=== PATIENT | female | born 1980 | race Caucasian/White ===

== ENCOUNTER 2024-09-09 11:02 | Inpatient (IN) | payer MEDICARE, MEDICAID, SELFPAY ==
[2024-09-09 11:26] VITALS: BP 133/74; PULSE 83; RESP 16; TEMP 36.4; O2SAT 98
[2024-09-09 11:34] VITALS: BMI 27.0
--- NOTE | 2024-09-09 12:02 | P.HPPS_ITS ---
[facility] Date of Service: 09/09/24 Chief Complaint: schizoafective disorder, bipolar type Sources of Information: patient interviewed, chart reviewed and crisis/core team assessment reviewed HPI Subjective Notes: Pagan Warning and Section 12B Narrative: The patient is a 44-year-old female, single, with no children, unemployed on disability, living with his mother with good social support with a past history of schizoaffective disorder bipolar type who was referred to a local crisis due to exacerbation of psychosis. According to the crisis report, her mother called the crisis center since the patient had been decompensating slowly with inability to do her ADLs, neglecting her self-care and responding to internal stimuli. The patient is was assessed by the crisis team and referred to this facility for psychiatric stabilization. As per the crisis team's report, the patient is a very poor historian and most of the information was provided by her mother Almita. The crisis assessment reported that her mother has notice involuntary movements in her neck and legs and the mother is the person who provides the patient with her medications. It is unclear if the patient had been compliant with treatment. The patient follows outpatient services by Dr. Sher at [facility]. On the intake interview, the patient refused to sign a conditional voluntary she stated that she was doing fine but she was very poor historian, refused to elaborate. She was unable to provide any new symptoms. Even though, it was clear that the patient was anxious, responding to internal stimuli. She denied auditory hallucinations but she was internally preoccupied. She denies suicidal or homicidal thoughts. She agreed that we could contact her mother for further information. Past Psychiatric History: The patient has 3 prior admissions into the hospital 1 2022 at the [facility] at [facility]. She follows outpatient services by Dr. Sher at [facility] Medical Evaluation Reviewed: Hospitalist Val Pending [facility] Narrative: Denies medical problems Family History: Denies Social History: The patient is single, never , no biological children. She lives with her mother who is a good support and her primary caregiver. Substance History: Denies Trauma History: Denies Diagnostics Vital Signs (24Hr): Vital Signs - 24 hr 09/09/24 11:26 Temperature 97.6 F Pulse Rate 83 Respiratory Rate 16 Blood Pressure 133/74 Pulse Oximetry 98 Oxygen Delivery Method Room Air BMI result Body Mass Index 27.0 Meds/Allergies Meds Home Medications ?Medication ?Instructions ?Recorded ?Confirmed ?Type benztropine 2 mg tablet 2 mg PO BEDTIME 09/09/24 09/09/24 History divalproex 500 mg tablet,extended 500 mg PO BEDTIME 09/09/24 09/09/24 History release 24 hr (Depakote ER) methylphenidate HCl 5 mg tablet 10 mg PO DAILY 09/09/24 09/09/24 History ziprasidone HCl 80 mg capsule 80 mg PO BID@0900,1700 09/09/24 09/09/24 History (Geodon) Allergies Allergies Allergy/AdvReac Type Severity Reaction Status Date / Time No Known Allergies Allergy Verified 09/09/24 11:30 Mental Status Exam Mental Status Exam Patient Appearance: Appropriate (On hospital gowns) Patient Orientation: Person and Situation Level of Consciousness: Awake and Appropriate Patient Behavior: Guarded, Passive and Suspicious Mood Description: Withdrawn Affect Description: Blunted Ability to Follow Directions: Fair Speech Pattern: Impoverished and Monotone Hallucinations: None Delusions: Paranoid Ideation and Ideas of Reference Thought Process: Evasive and Slowed Thinking Thought Content: positive for [place], positive for Poverty of Content and positive for Thought Blocking Judgement: Poor Assessment & Plan Assessment & Plan (1) Schizoaffective disorder: Status: Acute Code(s): F25.9 - Schizoaffective disorder, unspecified Plan The patient is an adult female with a past history of schizoaffective disorder who has prior admissions into the hospital for psychotic decompensation. The present episode started a few weeks ago with self neglect according to his mother. She was assessed by crisis and transferring to this facility for psychiatric stabilization. The patient follows outpatient services at [facility] with by Dr. Sher. Plan 1. The patient is able to contract for safety in the facility so we are going to keep her on 15 minute checks. 2. The patient is a very poor historian, we are going to try to contact her mother and gather collateral information. The patient gave us permission to contact her mother. 3. Continue with antipsychotics as per med reconciliation form. 4. For tomorrow we are ordering comprehensive metabolic panel, CBC with d ifferential, Depakote level and lipid profile. 5. Regular diet 6. Reassessment with results. 7. Hospitalist consult. Patient educated on: diagnosis and therapeutic strategies Informed Consent: further education needed Reason for continued inpatient stay Substantial Risk for: harm to self, inability to function, rapid decompensation and med/psych decompensation Statement Statement: I have reviewed the history and physical and performed a pertinent examination on my patient. No changes have occurred unless specified. If the History and Physical was not performed prior to admission, the Hospitalist's service will be consulted for completing the admission physical. Time Spent With Patient Time: Total time managing care of this patient today __45__ minutes.
--- NOTE | 2024-09-09 13:56 | PC.ADMIT ---
Valarie was admitted to from [facility] ED on 09/09/24 at 11:19 for the treatment of schizoaffective disorder, bipolar type. She declined CV upon arrival and was placed on a 12B. Contraband/skin check was completed upon arrival. The precipitant of admission was concern for decompensation d/t an increase in self dialoguing, not attending to ADL's, and making strange movements. She denies suicidal and homicidal thoughts and intent. She denies auditory and visual hallucinations. She was cooperative with admission process but guarded and difficult to engage. Her eye contact was poor. Utox was negative BAL -. She was placed on 15 minute checks for safety.
--- NOTE | 2024-09-09 14:52 | PC.ADMIT ---
Valarie was admitted to M3 from [facility] for the treatment of schizoaffective disorder, bipolar type. She declined CV and was placed on a 12B. Skin/contraband check was completed by staff. Prior to admission, there had been concerns that Valarie was decompensating due to responding to internal stimuli, not attending to ADL's, and making strange jerking movements. She denies suicidal and homicidal thoughts and intent. She denies auditory and visual hallucinations. She was guarded and made poor eye contact but was overall cooperative. Utox and BAL were negative. She appears somewhat disheveled and her hair was unwashed and unbrushed. She declined to sign all paperwork and consents. She was placed on 15 minute checks for safety.
--- NOTE | 2024-09-09 15:47 | P.CONHOSP_ITS ---
History of Present Illness Data of Consult Service Date: 09/09/24 Primary Care Provider: None Physician HPI Reason for consult: Admission H&P Pt is a 44-year-old female with a PMH significant for schizophrenia?who is admitted to M3 psychiatry unit for concerns about acute psychosis. Pt initially brought to the ED on a section 12 as patient's mother has been worried pt was decompensating and responding to internal stimuli. Pt apparently had not been engaging in her ADLs and had increased pacing, was socially withdrawn, and speaking to herself. Medical consult for admission H&P. Pt seen evaluated on the unit where she appears nervous and occasionally responding to internal stimuli, though overall cooperative. Denies any significant PMH and reports last saw her PCP a few months ago. Denies any acute medical complaints. No fever, chills, nausea, vomiting, abdominal pain. Denies shortness or breath or difficulty breathing. No cough. Denies chest pain/pressure, palpitations. No headache or acute vision changes. Labs from chart reviewed, grossly unremarkable. Vital signs stable and WNL. Review of Systems Review of Systems: Pt has no acute medical complaints at this time. [facility] Social History Household Members: Family Household Members Other:: mom Housing: House Do you presently have visiting nurse or other home services: No Patient Tobacco Use Status: Current everyday Tobacco user Tobacco use type: Cigarette Cigarettes Per Day: 10 Smoked in Last 30 Days: Yes e-Cigarette/Vaping Use: Former Use Patient Interested in Nicotine Replacement: No Patient Given Instructions on How to Stop Smoking: Yes Date Education Initiated: 09/09/24 Second Hand Smoke Exposure: Yes Use of substances other than those prescribed or required for medical reasons: No Currently Displaying Signs/Symptoms of Drug Intoxication Withdrawal: No Any prior treatment program specific to substance use: No Have you been hit, kicked, punched, or otherwise hurt by someone within the past year? If so, by whom?: No Do you feel safe in your current relationship?: No Current Relationship Is there a partner from a previous relationship who is making you feel unsafe now?: No Are you made to feel afraid or neglected: No Advance Directives: No Advance Directives Information Provided: Yes Do you have a plan to hurt others: No Plan Recently lost weight without trying: Unsure Eating poorly because of decreased appetite: No Nutrition Risks: No Nutritional Risk Patient : No : No Poor oral hygiene: No Meds Allergies Allergy/AdvReac Type Severity Reaction Status Date / Time No Known Allergies Allergy Verified 09/09/24 11:30 Active Medications: Current Medications Acetaminophen (Acetaminophen 325 Mg Tablet) 650 mg PO Q6H PRN PRN Reason: Headache/Pain, Scale 1-10 Al Hydroxide/Mg Hydroxide (Magnesium Hydrox/Alum Hydrox 30 Ml Oral.Susp) 30 ml PO Q6H PRN PRN Reason: Heartburn/Nausea Benztropine Mesylate (Benztropine Mesylate 1 Mg Tablet) 2 mg PO BEDTIME FREDI Divalproex Sodium (Divalproex Sodium Er 500 Mg Tab.Er.24h) 500 mg PO BEDTIME FREDI Hydroxyzine HCl (Hydroxyzine Hcl 25 Mg Tablet) 25 mg PO Q6H PRN PRN Reason: mild anxiety Magnesium Hydroxide (Milk Of Magnesia 30 Ml Oral.Susp) 30 ml PO DAILY PRN PRN Reason: Constipation Trazodone HCl (Trazodone Hcl 50 Mg Tablet) 50 mg PO BEDTIME MRX1 PRN PRN Reason: Insomnia Ziprasidone (Ziprasidone 80 Mg Capsule) 80 mg PO BID@0900,1700 [facility] Home Medications ?Medication ?Instructions ?Recorded ?Confirmed ?Last Taken ?Type benztropine 2 mg tablet 2 mg PO BEDTIME 09/09/24 09/09/24 Unknown History divalproex 500 mg tablet,extended 500 mg PO BEDTIME 09/09/24 09/09/24 Unknown History release 24 hr (Depakote ER) methylphenidate HCl 5 mg tablet 10 mg PO DAILY 09/09/24 09/09/24 Unknown History ziprasidone HCl 80 mg capsule 80 mg PO BID@0900,1700 09/09/24 09/09/24 Unknown History (Geodon) Physical Exam Vital Signs and Narrative: Vital Signs: Last Vital Signs Temp 97.6 F 09/09/24 11:26 Pulse 83 09/09/24 11:26 Resp 16 09/09/24 11:26 BP 133/74 09/09/24 11:26 Pulse Ox 98 09/09/24 11:26 O2 Del Method Room Air 09/09/24 11:26 BMI result Body Mass Index 27.0 General: AOx3, no acute distress Resp: CTA bilaterally CVS: S1, S2, RRR GI: +BS, NT, no distention Skin: Warm, dry Neuro: Cranial nerves II-XII grossly intact bilaterally. Motor grossly intact bilaterally Extremities: No edema Psych: Appears nervous, picking at fingers, seems to be responding to internal stimuli. Assessment and Plan (1) Medical clearance for psychiatric admission: Status: Acute Plan Pt is a 44-year-old female with a PMH significant for schizophrenia?who is admitted to M3 psychiatry unit for concerns about acute psychosis. Pt initially brought to the ED on a section 12 as patient's mother has been worried pt was decompensating and responding to internal stimuli. Pt apparently had not been engaging in her ADLs and had increased pacing, was socially withdrawn, and speaking to herself. Medical consult for admission H&P. Mood disorder Plan as per psychiatry Pt otherwise has no known significant chronic medical conditions or acute medical complaints at this time. Will sign off for now. Thank you for allowing us to participate in the care of this pt. Please re-consult if any acute issue or need arises.
[2024-09-09] MEDS: Ziprasidone 80 MG CAPSULE PO (18:05)
[2024-09-09 20:00] VITALS: BP 147/87; PULSE 82; RESP 16; TEMP 36.4; O2SAT 96
[2024-09-09] MEDS: Divalproex Sodium ER 500 MG TAB.ER.24H PO (20:34)
[2024-09-09] MEDS: Benztropine Mesylate 1 MG TABLET 2 MG PO (20:34)
[2024-09-09 21:30] LABS: Valproate 26.5 mcg/mL (50.0-100.0)
[2024-09-09 21:31] LABS: Alanine Aminotransferase 17 U/L (0-31); Albumin Level 4.1 g/dL (3.5-5.0); Alkaline Phosphatase 64 U/L (39-117); Anion Gap 15 (12-20); Aspartate Amino Transferase 24 U/L (5-31); Bilirubin Total 0.3 mg/dL (0.0-1.0); Blood Urea Nitrogen 19 mg/dL (9-16); Carbon Dioxide 21 mmol/L (22-29); Chloride 110 mmol/L (96-108); Creatinine Clr Calc Pharmacy 101.9; Estimated Glomerular Filt Rate > 60; Glucose Random 123 mg/dL (60-115); Potassium 3.9 mmol/L (3.3-5.1); Sodium 142 mmol/L (135-145); Total Protein 7.1 g/dL (6.5-8.0)
[2024-09-10 08:00] VITALS: BP 122/73; PULSE 83; RESP 16; TEMP 36.7; O2SAT 96
[2024-09-10] MEDS: Ziprasidone 80 MG CAPSULE PO ×2 (08:47→17:21)
--- NOTE | 2024-09-10 09:06 | HO.PSYCHPN ---
Subjective Subjective Date of Service: 09/10/24 Reason For Visit: schizoafective disorder, bipolar type Subjective Notes: Section 12B Interim History: The nursing staff reported the patient denies suicidal or homicidal ideation she denies auditory hallucination and she had been guarded but cooperative with poor eye contact. She has refused to sign any papers but she had been medication compliant. On interview the patient looks internally preoccupied refused to engage in a longer conversation. Also, refused her bloodwork initially. Mental Status Exam Mental Status Exam Patient Appearance: Unkempt Patient Orientation: Person and Situation Level of Consciousness: Awake Patient Behavior: Guarded and Passive Mood Description: Withdrawn Affect Description: Blunted Patient Cognition Impaired: Yes Ability to Follow Directions: Fair Speech Pattern: Clear Hallucinations: None Delusions: Paranoid Ideation Thought Process: Distracted and Slowed Thinking Thought Content: positive for [place] and positive for Poverty of Content Judgement: Poor Diagnostics Vital Signs (24Hr): Vital Signs - 24 hr 09/09/24 11:26 09/09/24 20:00 09/10/24 08:00 Temperature 97.6 F 97.5 F 98.1 F Pulse Rate 83 82 83 Respiratory Rate 16 16 16 Blood Pressure 133/74 147/87 H 122/73 Pulse Oximetry 98 96 96 Oxygen Delivery Method Room Air Room Air Room Air BMI result Body Mass Index 27.0 Labs 09/09/24 20:52 Labs: Laboratory Results - last 48 hr 09/09/24 20:52 Sodium 142 Potassium 3.9 Chloride 110 H Carbon Dioxide 21 L Anion Gap 15 BUN 19 H Creatinine 0.74 Estim Creat Clear Calc 101.9 Estimated GFR > 60 Random Glucose 123 H Calcium 9.0 Total Bilirubin 0.3 AST 24 ALT 17 Alkaline Phosphatase 64 Total Protein 7.1 Albumin 4.1 Valproic Acid 26.5 L Medications Medications Current Medications Acetaminophen (Acetaminophen 325 Mg Tablet) 650 mg PO Q6H PRN PRN Reason: Headache/Pain, Scale 1-10 Al Hydroxide/Mg Hydroxide (Magnesium Hydrox/Alum Hydrox 30 Ml Oral.Susp) 30 ml PO Q6H PRN PRN Reason: Heartburn/Nausea Benztropine Mesylate (Benztropine Mesylate 1 Mg Tablet) 2 mg PO BEDTIME FREDI Last Admin: 09/09/24 20:34 Dose: 2 mg Divalproex Sodium (Divalproex Sodium Er 500 Mg Tab.Er.24h) 500 mg PO BEDTIME FREDI Last Admin: 09/09/24 20:34 Dose: 500 mg Hydroxyzine HCl (Hydroxyzine Hcl 25 Mg Tablet) 25 mg PO Q6H PRN PRN Reason: mild anxiety Magnesium Hydroxide (Milk Of Magnesia 30 Ml Oral.Susp) 30 ml PO DAILY PRN PRN Reason: Constipation Trazodone HCl (Trazodone Hcl 50 Mg Tablet) 50 mg PO BEDTIME MRX1 PRN PRN Reason: Insomnia Ziprasidone (Ziprasidone 80 Mg Capsule) 80 mg PO BID@0900,1700 [facility] Last Admin: 09/10/24 08:47 Dose: 80 mg Allergies Allergies Allergy/AdvReac Type Severity Reaction Status Date / Time No Known Allergies Allergy Verified 09/09/24 11:30 Assessment & Plan Assessment & Plan (1) Medical clearance for psychiatric admission: Status: Acute Code(s): Z00.8 - Encounter for other general examination Plan Pt is a 44-year-old female with a PMH significant for schizophrenia?who is admitted to M3 psychiatry unit for concerns about acute psychosis. Pt initially brought to the ED on a section 12 as patient's mother has been worried pt was decompensating and responding to internal stimuli. Pt apparently had not been engaging in her ADLs and had increased pacing, was socially withdrawn, and speaking to herself. Medical consult for admission H&P. Mood disorder Plan as per psychiatry Pt otherwise has no known significant chronic medical conditions or acute medical complaints at this time. Will sign off for now. Thank you for allowing us to participate in the care of this pt. Please re-consult if any acute issue or need arises. Plan 1. Keep on 15 minute checks. 2. Gather more collateral information the patient is a very poor historian. 3. Continue with the same psychotropics. 4. Continue with medical workout and reassessment with results. Reason for continued inpatient stay Substantial Risk for: inability to function, rapid decompensation and med/psych decompensation Time Spent With Patient Time: Total time managing care of this patient today __20__ minutes.
[2024-09-10] MEDS: Benztropine Mesylate 1 MG TABLET 2 MG PO (20:47)
[2024-09-10] MEDS: Divalproex Sodium ER 500 MG TAB.ER.24H PO (20:48)
[2024-09-11 07:40] VITALS: BP 112/65; PULSE 67; RESP 14; TEMP 36.7; O2SAT 98
[2024-09-11] MEDS: Ziprasidone 80 MG CAPSULE PO ×2 (09:00→17:27)
[2024-09-11 09:09] LABS: Cholesterol 150 mg/dL (<200); HDL Cholesterol 63 mg/dL (>40); LDL Cholesterol Calculated 79 mg/dL (<100); Triglycerides 41 mg/dL (<150)
[2024-09-11 09:37] LABS: Free T4 (Free Thyroxine) 1.13 ng/dL (0.71-1.85)
--- NOTE | 2024-09-11 15:08 | HO.PSYCHPN ---
Subjective Subjective Date of Service: 09/11/24 Reason For Visit: schizoafective disorder, bipolar type Interim History: mood is good, denies SI/HI/AVH. distracted, may be RIS. per staff, not attending groups. no consent for mother. +dep/anx. isolative. slept 7 hours. taking meds. Mental Status Exam Mental Status Exam Narrative: adequately dressed and groomed. cooperative. no PMA/PMR. speech nml rate, decr amount, decr prosody. some GARY indicative of distraction (ie, AH). thoughts linear and logical. affect blunted. mood it's good. denies SI/SIBI/HI/AVH. Diagnostics Vital Signs (24Hr): Vital Signs - 24 hr 09/11/24 07:40 Temperature 98.0 F Pulse Rate 67 Respiratory Rate 14 Blood Pressure 112/65 Pulse Oximetry 98 Oxygen Delivery Method Room Air BMI result Body Mass Index 27.0 Labs 09/09/24 20:52 Labs: Laboratory Results - last 48 hr 09/09/24 09/11/24 20:52 08:08 Sodium 142 Potassium 3.9 Chloride 110 H Carbon Dioxide 21 L Anion Gap 15 BUN 19 H Creatinine 0.74 Estim Creat Clear Calc 101.9 Estimated GFR > 60 Random Glucose 123 H Calcium 9.0 Total Bilirubin 0.3 AST 24 ALT 17 Alkaline Phosphatase 64 Total Protein 7.1 Albumin 4.1 Triglycerides 41 Cholesterol 150 LDL Cholesterol, Calc 79 HDL Cholesterol 63 Free T4 1.13 Valproic Acid 26.5 L Medications Medications Current Medications Acetaminophen (Acetaminophen 325 Mg Tablet) 650 mg PO Q6H PRN PRN Reason: Headache/Pain, Scale 1-10 Al Hydroxide/Mg Hydroxide (Magnesium Hydrox/Alum Hydrox 30 Ml Oral.Susp) 30 ml PO Q6H PRN PRN Reason: Heartburn/Nausea Benztropine Mesylate (Benztropine Mesylate 1 Mg Tablet) 2 mg PO BEDTIME FREDI Last Admin: 09/10/24 20:47 Dose: 2 mg Divalproex Sodium (Divalproex Sodium Er 500 Mg Tab.Er.24h) 500 mg PO BEDTIME FREDI Last Admin: 09/10/24 20:48 Dose: 500 mg Hydroxyzine HCl (Hydroxyzine Hcl 25 Mg Tablet) 25 mg PO Q6H PRN PRN Reason: mild anxiety Magnesium Hydroxide (Milk Of Magnesia 30 Ml Oral.Susp) 30 ml PO DAILY PRN PRN Reason: Constipation Trazodone HCl (Trazodone Hcl 50 Mg Tablet) 50 mg PO BEDTIME MRX1 PRN PRN Reason: Insomnia Ziprasidone (Ziprasidone 80 Mg Capsule) 80 mg PO BID@0900,1700 FREDI Last Admin: 09/11/24 09:00 Dose: 80 mg Allergies Allergies Allergy/AdvReac Type Severity Reaction Status Date / Time No Known Allergies Allergy Verified 09/09/24 11:30 Assessment & Plan Assessment & Plan (1) Medical clearance for psychiatric admission: Status: Acute Code(s): Z00.8 - Encounter for other general examination Plan Pt is a 44-year-old female with a PMH significant for schizophrenia?who is admitted to M3 psychiatry unit for concerns about acute psychosis. Pt initially brought to the ED on a section 12 as patient's mother has been worried pt was decompensating and responding to internal stimuli. Pt apparently had not been engaging in her ADLs and had increased pacing, was socially withdrawn, and speaking to herself. Medical consult for admission H&P. Mood disorder Plan as per psychiatry Pt otherwise has no known significant chronic medical conditions or acute medical complaints at this time. Will sign off for now. Thank you for allowing us to participate in the care of this pt. Please re-consult if any acute issue or need arises. Plan 1. Keep on 15 minute checks. 2. Gather more collateral information the patient is a very poor historian. 3. Continue with the same psychotropics. 4. Continue with medical workout and reassessment with results. 3/3: meds reviewed, pt endorses present regimen. denies Sx. continue current mgmt. Reason for continued inpatient stay Substantial Risk for: inability to function and rapid decompensation Time Spent With Patient Time: Total time managing care of this patient today __25__ minutes.
[2024-09-11 20:00] VITALS: BP 125/62; PULSE 76; RESP 16; TEMP 36.3; O2SAT 99
[2024-09-11] MEDS: Benztropine Mesylate 1 MG TABLET 2 MG PO (21:30)
[2024-09-11] MEDS: Divalproex Sodium ER 500 MG TAB.ER.24H PO (21:31)
[2024-09-12 07:46] VITALS: BP 116/76; PULSE 96; RESP 18; TEMP 36.8; O2SAT 99
[2024-09-12] MEDS: Ziprasidone 80 MG CAPSULE PO ×2 (08:32→17:01)
[2024-09-12 20:45] VITALS: BP 131/86; PULSE 62; RESP 16; TEMP 36.3; O2SAT 100
[2024-09-12] MEDS: Benztropine Mesylate 1 MG TABLET 2 MG PO (21:35)
[2024-09-12] MEDS: Divalproex Sodium ER 500 MG TAB.ER.24H PO (21:36)
--- NOTE | 2024-09-12 23:13 | HO.PSYCHPN ---
Subjective Subjective Date of Service: 09/12/24 Reason For Visit: schizoafective disorder, bipolar type Subjective Notes: Conditional Voluntary Interim History: Patient seen psychiatric coverage for Dr. Goodwin. Patient has generally been isolative cooperative with medication no severe agitation noted no medical changes Mental Status Exam Mental Status Exam Narrative: Patient casually dressed somewhat disheveled. Poverty of content denied hallucinations or delusional material denies hallucinations no gross delusional material impulse control adequate accepting treatment Diagnostics Vital Signs (24Hr): Vital Signs - 24 hr 09/12/24 07:46 09/12/24 20:45 Temperature 98.2 F 97.3 F Pulse Rate 96 62 Respiratory Rate 18 16 Blood Pressure 116/76 131/86 Pulse Oximetry 99 100 Oxygen Delivery Method Room Air Room Air BMI result Body Mass Index 27.0 Labs 09/09/24 20:52 Labs: Laboratory Results - last 48 hr 09/11/24 08:08 Triglycerides 41 Cholesterol 150 LDL Cholesterol, Calc 79 HDL Cholesterol 63 Free T4 1.13 Medications Medications Current Medications Acetaminophen (Acetaminophen 325 Mg Tablet) 650 mg PO Q6H PRN PRN Reason: Headache/Pain, Scale 1-10 Al Hydroxide/Mg Hydroxide (Magnesium Hydrox/Alum Hydrox 30 Ml Oral.Susp) 30 ml PO Q6H PRN PRN Reason: Heartburn/Nausea Benztropine Mesylate (Benztropine Mesylate 1 Mg Tablet) 2 mg PO BEDTIME [facility] Last Admin: 09/12/24 21:35 Dose: 2 mg Divalproex Sodium (Divalproex Sodium Er 500 Mg Tab.Er.24h) 500 mg PO BEDTIME [facility] Last Admin: 09/12/24 21:36 Dose: 500 mg Hydroxyzine HCl (Hydroxyzine Hcl 25 Mg Tablet) 25 mg PO Q6H PRN PRN Reason: mild anxiety Magnesium Hydroxide (Milk Of Magnesia 30 Ml Oral.Susp) 30 ml PO DAILY PRN PRN Reason: Constipation Trazodone HCl (Trazodone Hcl 50 Mg Tablet) 50 mg PO BEDTIME MRX1 PRN PRN Reason: Insomnia Ziprasidone (Ziprasidone 80 Mg Capsule) 80 mg PO BID@0900,1700 [facility] Last Admin: 09/12/24 17:01 Dose: 80 mg Allergies Allergies Allergy/AdvReac Type Severity Reaction Status Date / Time No Known Allergies Allergy Verified 09/09/24 11:30 Assessment & Plan Assessment & Plan (1) Schizoaffective disorder: Status: Acute Code(s): F25.9 - Schizoaffective disorder, unspecified Plan Pt is a 44-year-old female with a PMH significant for schizophrenia?who is admitted to M3 psychiatry unit for concerns about acute psychosis. Pt initially brought to the ED on a section 12 as patient's mother has been worried pt was decompensating and responding to internal stimuli. Pt apparently had not been engaging in her ADLs and had increased pacing, was socially withdrawn, and speaking to herself. Medical consult for admission H&P. Mood disorder Plan as per psychiatry Pt otherwise has no known significant chronic medical conditions or acute medical complaints at this time. Will sign off for now. Thank you for allowing us to participate in the care of this pt. Please re-consult if any acute issue or need arises. Plan 1. Keep on 15 minute checks. 2. Gather more collateral information the patient is a very poor historian. 3. Continue with the same psychotropics. 4. Continue with medical workout and reassessment with results. 3/3: meds reviewed, pt endorses present regimen. denies Sx. continue current mgmt. Patient educated on: diagnosis Informed Consent: further education needed Reason for continued inpatient stay Substantial Risk for: inability to function and rapid decompensation Time Spent With Patient Time: Total time managing care of this patient today ____ minutes.
[2024-09-13 07:49] VITALS: BP 125/75; PULSE 70; RESP 16; TEMP 36.4; O2SAT 99
[2024-09-13] MEDS: Ziprasidone 80 MG CAPSULE PO ×2 (08:20→17:20)
--- NOTE | 2024-09-13 15:14 | HO.PSYCHPN ---
Subjective Subjective Date of Service: 09/13/24 Reason For Visit: schizoafective disorder, bipolar type Interim History: signs CV and then 3-day notice, feeling perhaps remaining in the hospital for now would be helpful for her. declines lab draw for tomorrow night. per staff, 12b up today. taking meds. lfat. withdrawn. guarded. +RIS - whispering. slept most of shift. Mental Status Exam Mental Status Exam Narrative: adequately dressed and groomed. cooperative. no PMA/PMR. speech nml rate, decr amount, decr prosody. some GARY indicative of distraction (ie, AH). thoughts linear and logical. affect blunted. mood not assessed. no SI/SIBI/HI/AVH expressed. Diagnostics Vital Signs (24Hr): Vital Signs - 24 hr 09/12/24 20:45 09/13/24 07:49 Temperature 97.3 F 97.5 F Pulse Rate 62 70 Respiratory Rate 16 16 Blood Pressure 131/86 125/75 Pulse Oximetry 100 99 Oxygen Delivery Method Room Air Room Air BMI result Body Mass Index 27.0 Labs 09/09/24 20:52 Medications Medications Current Medications Acetaminophen (Acetaminophen 325 Mg Tablet) 650 mg PO Q6H PRN PRN Reason: Headache/Pain, Scale 1-10 Al Hydroxide/Mg Hydroxide (Magnesium Hydrox/Alum Hydrox 30 Ml Oral.Susp) 30 ml PO Q6H PRN PRN Reason: Heartburn/Nausea Benztropine Mesylate (Benztropine Mesylate 1 Mg Tablet) 2 mg PO BEDTIME [facility] Last Admin: 09/12/24 21:35 Dose: 2 mg Divalproex Sodium (Divalproex Sodium Er 500 Mg Tab.Er.24h) 500 mg PO BEDTIME [facility] Last Admin: 09/12/24 21:36 Dose: 500 mg Hydroxyzine HCl (Hydroxyzine Hcl 25 Mg Tablet) 25 mg PO Q6H PRN PRN Reason: mild anxiety Magnesium Hydroxide (Milk Of Magnesia 30 Ml Oral.Susp) 30 ml PO DAILY PRN PRN Reason: Constipation Trazodone HCl (Trazodone Hcl 50 Mg Tablet) 50 mg PO BEDTIME MRX1 PRN PRN Reason: Insomnia Ziprasidone (Ziprasidone 80 Mg Capsule) 80 mg PO BID@0900,1700 [facility] Last Admin: 09/13/24 08:20 Dose: 80 mg Allergies Allergies Allergy/AdvReac Type Severity Reaction Status Date / Time No Known Allergies Allergy Verified 09/09/24 11:30 Assessment & Plan Assessment & Plan (1) Schizoaffective disorder: Status: Acute Code(s): F25.9 - Schizoaffective disorder, unspecified Plan Pt is a 44-year-old female with a PMH significant for schizophrenia?who is admitted to [facility] psychiat[facility] unit for concerns about acute psychosis. Pt initially brought to the ED on a section 12 as patient's mother has been worried pt was decompensating and responding to internal stimuli. Pt apparently had not been engaging in her ADLs and had increased pacing, was socially withdrawn, and speaking to herself. Medical consult for admission H&P. Mood disorder Plan as per psychiatry Pt otherwise has no known significant chronic medical conditions or acute medical complaints at this time. Will sign off for now. Thank you for allowing us to participate in the care of this pt. Please re-consult if any acute issue or need arises. Plan 1. Keep on 15 minute checks. 2. Gather more collateral information the patient is a very poor historian. 3. Continue with the same psychotropics. 4. Continue with medical workout and reassessment with results. 3/3: meds reviewed, pt endorses present regimen. denies Sx. continue current mgmt. 3/5: signed CV, then 3-day. continue current mgmt. declines lab draw for tomorrow. Reason for continued inpatient stay Substantial Risk for: inability to function and rapid decompensation Time Spent With Patient Time: Total time managing care of this patient today __35__ minutes.
[2024-09-13] MEDS: Benztropine Mesylate 1 MG TABLET 2 MG PO (20:27)
[2024-09-13] MEDS: Divalproex Sodium ER 500 MG TAB.ER.24H PO (20:27)
[2024-09-14 07:00] VITALS: BMI 26.9
[2024-09-14 07:42] VITALS: BP 113/68; PULSE 73; RESP 18; TEMP 36.6; O2SAT 97
[2024-09-14] MEDS: Ziprasidone 80 MG CAPSULE PO ×2 (08:21→16:36)
--- NOTE | 2024-09-14 12:01 | P.PNPSI_ITS ---
Subjective Subjective Date of Service: 09/14/24 Reason For Visit: schizoafective disorder, bipolar type Interim History: Keeping to self. isolating to room. guarded. pt brief during assessment. She reports feeling alright today; when asked why she is not leaving her room; pt stated, because I'm not in the mood for groups . denies SI/HI/VH/AH. denies any issues at this time. per nursing, slept 8 hours. Medication Compliance: Yes Side effects from medications: No Attending Groups: No Mental Status Exam Mental Status Exam Narrative: Pt is alert and oriented; behavior is cooperative, calm, guarded, brief; dressed in hospital attire; mood is described as alright ; eye contact appropriate; Speech is normal rate, volume and not pressured;difficult to engage; denies SI/HI/VH/AH. Diagnostics Vital Signs (24Hr): Vital Signs - 24 hr 09/14/24 07:42 Temperature 97.8 F Pulse Rate 73 Respiratory Rate 18 Blood Pressure 113/68 Pulse Oximetry 97 Oxygen Delivery Method Room Air BMI result Body Mass Index 26.9 Labs 09/09/24 20:52 Medications Medications Current Medications Acetaminophen (Acetaminophen 325 Mg Tablet) 650 mg PO Q6H PRN PRN Reason: Headache/Pain, Scale 1-10 Al Hydroxide/Mg Hydroxide (Magnesium Hydrox/Alum Hydrox 30 Ml Oral.Susp) 30 ml PO Q6H PRN PRN Reason: Heartburn/Nausea Benztropine Mesylate (Benztropine Mesylate 1 Mg Tablet) 2 mg PO BEDTIME [facility] Last Admin: 09/13/24 20:27 Dose: 2 mg Divalproex Sodium (Divalproex Sodium Er 500 Mg Tab.Er.24h) 500 mg PO BEDTIME [facility] Last Admin: 09/13/24 20:27 Dose: 500 mg Hydroxyzine HCl (Hydroxyzine Hcl 25 Mg Tablet) 25 mg PO Q6H PRN PRN Reason: mild anxiety Magnesium Hydroxide (Milk Of Magnesia 30 Ml Oral.Susp) 30 ml PO DAILY PRN PRN Reason: Constipation Trazodone HCl (Trazodone Hcl 50 Mg Tablet) 50 mg PO BEDTIME MRX1 PRN PRN Reason: Insomnia Ziprasidone (Ziprasidone 80 Mg Capsule) 80 mg PO BID@0900,1700 [facility] Last Admin: 09/14/24 08:21 Dose: 80 mg Allergies Allergies Allergy/AdvReac Type Severity Reaction Status Date / Time No Known Allergies Allergy Verified 09/09/24 11:30 Assessment & Plan Assessment & Plan (1) Schizoaffective disorder: Status: Acute Code(s): F25.9 - Schizoaffective disorder, unspecified Plan Pt is a 44-year-old female with a PMH significant for schizophrenia?who is admitted to [facility] unit for concerns about acute psychosis. Pt initially brought to the ED on a section 12 as patient's mother has been worried pt was decompensating and responding to internal stimuli. Pt apparently had not been engaging in her ADLs and had increased pacing, was socially withdrawn, and speaking to herself. Medical consult for admission H&P. Mood disorder Plan as per psychiatry Pt otherwise has no known significant chronic medical conditions or acute medical complaints at this time. Will sign off for now. Thank you for allowing us to participate in the care of this pt. Please re-consult if any acute issue or need arises. Plan 1. Keep on 15 minute checks. 2. Gather more collateral information the patient is a very poor historian. 3. Continue with the same psychotropics. 4. Continue with medical workout and reassessment with results. 09/11: meds reviewed, pt endorses present regimen. denies Sx. continue current mgmt. 09/13: signed CV, then 3-day. continue current mgmt. declines lab draw for tomorrow. 09/14: isolative. difficult to engage. denies any issues. per nursing slept 8 hours. continue tx plan. Reason for continued inpatient stay Substantial Risk for: med/psych decompensation Time Spent With Patient Time: Total time managing care of this patient today _10___ minutes.
[2024-09-14 20:11] VITALS: BP 181/72; PULSE 65; RESP 18; TEMP 36.3; O2SAT 100
[2024-09-14] MEDS: Divalproex Sodium ER 500 MG TAB.ER.24H PO (22:05)
[2024-09-14] MEDS: Benztropine Mesylate 1 MG TABLET 2 MG PO (22:05)
[2024-09-15 08:00] VITALS: BP 117/56; PULSE 75; RESP 16; TEMP 36.4; O2SAT 98
[2024-09-15] MEDS: Ziprasidone 80 MG CAPSULE PO ×2 (08:31→17:23)
--- NOTE | 2024-09-15 13:11 | HO.PSYCHPN ---
Subjective Subjective Date of Service: 09/15/24 Reason For Visit: schizoafective disorder, bipolar type Interim History: Continues isolating in room. guarded. encouraged to leave room and attend groups. She reports feeling good ; denies SI/HI/VH/AH. denies any issues at this time. Medication Compliance: Yes Side effects from medications: No Attending Groups: No Mental Status Exam Mental Status Exam Narrative: Pt is alert and oriented; behavior is cooperative, calm, guarded, brief; dressed in hospital attire; mood is described as good ; eye contact appropriate; Speech is normal rate, volume and not pressured;difficult to engage; denies SI/HI/VH/AH. Diagnostics Vital Signs (24Hr): Vital Signs - 24 hr 09/14/24 20:11 09/15/24 08:00 Temperature 97.3 F 97.6 F Pulse Rate 65 75 Respiratory Rate 18 16 Blood Pressure 181/72 H 117/56 L Pulse Oximetry 100 98 Oxygen Delivery Method Room Air Room Air BMI result Body Mass Index 26.9 Labs 09/09/24 20:52 Medications Medications Current Medications Acetaminophen (Acetaminophen 325 Mg Tablet) 650 mg PO Q6H PRN PRN Reason: Headache/Pain, Scale 1-10 Al Hydroxide/Mg Hydroxide (Magnesium Hydrox/Alum Hydrox 30 Ml Oral.Susp) 30 ml PO Q6H PRN PRN Reason: Heartburn/Nausea Benztropine Mesylate (Benztropine Mesylate 1 Mg Tablet) 2 mg PO BEDTIME [facility] Last Admin: 09/14/24 22:05 Dose: 2 mg Divalproex Sodium (Divalproex Sodium Er 500 Mg Tab.Er.24h) 500 mg PO BEDTIME [facility] Last Admin: 09/14/24 22:05 Dose: 500 mg Hydroxyzine HCl (Hydroxyzine Hcl 25 Mg Tablet) 25 mg PO Q6H PRN PRN Reason: mild anxiety Magnesium Hydroxide (Milk Of Magnesia 30 Ml Oral.Susp) 30 ml PO DAILY PRN PRN Reason: Constipation Trazodone HCl (Trazodone Hcl 50 Mg Tablet) 50 mg PO BEDTIME MRX1 PRN PRN Reason: Insomnia Ziprasidone (Ziprasidone 80 Mg Capsule) 80 mg PO BID@0900,1700 [facility] Last Admin: 09/15/24 08:31 Dose: 80 mg Allergies Allergies Allergy/AdvReac Type Severity Reaction Status Date / Time No Known Allergies Allergy Verified 09/09/24 11:30 Assessment & Plan Assessment & Plan (1) Schizoaffective disorder: Status: Acute Code(s): F25.9 - Schizoaffective disorder, unspecified Plan Pt is a 44-year-old female with a PMH significant for schizophrenia?who is admitted to [facility] unit for concerns about acute psychosis. Pt initially brought to the ED on a section 12 as patient's mother has been worried pt was decompensating and responding to internal stimuli. Pt apparently had not been engaging in her ADLs and had increased pacing, was socially withdrawn, and speaking to herself. Medical consult for admission H&P. Mood disorder Plan as per psychiatry Pt otherwise has no known significant chronic medical conditions or acute medical complaints at this time. Will sign off for now. Thank you for allowing us to participate in the care of this pt. Please re-consult if any acute issue or need arises. Plan 1. Keep on 15 minute checks. 2. Gather more collateral information the patient is a very poor historian. 3. Continue with the same psychotropics. 4. Continue with medical workout and reassessment with results. 09/11: meds reviewed, pt endorses present regimen. denies Sx. continue current mgmt. 09/13: signed CV, then 3-day. continue current mgmt. declines lab draw for tomorrow. 09/14: isolative. difficult to engage. denies any issues. per nursing slept 8 hours. continue tx plan. 09/15: continue current tx plan. encouraged to leave room and attend groups. Patient educated on: medication risk/benefits Reason for continued inpatient stay Substantial Risk for: med/psych decompensation Time Spent With Patient Time: Total time managing care of this patient today _10___ minutes.
[2024-09-15 20:00] VITALS: BP 117/87; PULSE 90; RESP 16; TEMP 36.4; O2SAT 98
[2024-09-15] MEDS: Benztropine Mesylate 1 MG TABLET 2 MG PO (22:31)
[2024-09-15] MEDS: Divalproex Sodium ER 500 MG TAB.ER.24H PO (22:32)
[2024-09-16 07:35] VITALS: BP 110/76; PULSE 68; RESP 16; TEMP 36.5; O2SAT 99
[2024-09-16] MEDS: Ziprasidone 80 MG CAPSULE PO ×2 (09:05→17:45)
--- NOTE | 2024-09-16 11:35 | P.PNPSI_ITS ---
Subjective Subjective Date of Service: 09/16/24 Reason For Visit: schizoafective disorder, bipolar type Subjective Notes: Conditional Voluntary Interim History: Pt sleeping. She continues to present as internally preoccupied, although will denied ever hearing voices. She has not insight as to why she is here or why others were concern about her presentation. She presents with poverty of thought. She is somewhat ambivalent as to whether she should be here or not. She has not meaningful opinion as to hx of medication trials or therapeutic effects of current medications. Review of Systems Review of Systems Pt has no acute medical complaints at this time. Yes all other systems are reviewed and are negative Mental Status Exam Mental Status Exam Narrative: Appearance: wearing hospital gown, fair hygiene in NAD Behavior: superficially cooperative, but no meaninful engagement Psychomotor: no agitation or retardation noted Speech: clear, decrease amount, minimally spontaneous TP: poverty of thought TC: hoping to go home soon Mood: okay Affect: constricted SI: denies HI: denies VH/AH: although she denies, appears internally preoccupied Delusions: no overt delusional content reported, may not be fully forthcoming Insight/judgment: impaired x 2 Memory/co: alert, not oriented as to reasons for this admission, vague as to what brought her here, which according to records mother concern about pt's decompensation. Diagnostics Vital Signs (24Hr): Vital Signs - 24 hr 09/15/24 20:00 09/16/24 07:35 Temperature 97.5 F 97.7 F Pulse Rate 90 68 Respiratory Rate 16 16 Blood Pressure 117/87 110/76 Pulse Oximetry 98 99 Oxygen Delivery Method Room Air Room Air BMI result Body Mass Index 26.9 Labs 09/09/24 20:52 Medications Medications Current Medications Acetaminophen (Acetaminophen 325 Mg Tablet) 650 mg PO Q6H PRN PRN Reason: Headache/Pain, Scale 1-10 Al Hydroxide/Mg Hydroxide (Magnesium Hydrox/Alum Hydrox 30 Ml Oral.Susp) 30 ml PO Q6H PRN PRN Reason: Heartburn/Nausea Benztropine Mesylate (Benztropine Mesylate 1 Mg Tablet) 2 mg PO BEDTIME [facility] Last Admin: 09/15/24 22:31 Dose: 2 mg Divalproex Sodium (Divalproex Sodium Er 500 Mg Tab.Er.24h) 500 mg PO BEDTIME [facility] Last Admin: 09/15/24 22:32 Dose: 500 mg Hydroxyzine HCl (Hydroxyzine Hcl 25 Mg Tablet) 25 mg PO Q6H PRN PRN Reason: mild anxiety Magnesium Hydroxide (Milk Of Magnesia 30 Ml Oral.Susp) 30 ml PO DAILY PRN PRN Reason: Constipation Trazodone HCl (Trazodone Hcl 50 Mg Tablet) 50 mg PO BEDTIME MRX1 PRN PRN Reason: Insomnia Ziprasidone (Ziprasidone 80 Mg Capsule) 80 mg PO BID@0900,1700 [facility] Last Admin: 09/16/24 09:05 Dose: 80 mg Allergies Allergies Allergy/AdvReac Type Severity Reaction Status Date / Time No Known Allergies Allergy Verified 09/09/24 11:30 Assessment & Plan Assessment & Plan (1) Schizoaffective disorder: Status: Acute Code(s): F25.9 - Schizoaffective disorder, unspecified Plan Pt is a 44-year-old female with a PMH significant for schizophrenia?who is admitted to [facility] unit for concerns about acute psychosis. Pt initially brought to the ED on a section 12 as patient's mother has been worried pt was decompensating and responding to internal stimuli. Pt apparently had not been engaging in her ADLs and had increased pacing, was socially withdrawn, and speaking to herself. Medical consult for admission H&P. Mood disorder Plan as per psychiatry Pt otherwise has no known significant chronic medical conditions or acute medical complaints at this time. Will sign off for now. Thank you for allowing us to participate in the care of this pt. Please re-consult if any acute issue or need arises. 09/11: meds reviewed, pt endorses present regimen. denies Sx. continue current mgmt. 09/13: signed CV, then 3-day. continue current mgmt. declines lab draw for tomorrow. 09/14: isolative. difficult to engage. denies any issues. per nursing slept 8 hours. continue tx plan. 09/15: continue current tx plan. encouraged to leave room and attend groups. 09/16 consider gathering collateral information from OP psychiatrist, Dr. Sher as pt may benefit from medication changes. She also presents with s/s of akathisia, tapping feet Reason for continued inpatient stay Substantial Risk for: inability to function Time Spent With Patient Time: Total time managing care of this patient today ____ minutes.
[2024-09-16 20:00] VITALS: BP 124/57; PULSE 61; RESP 14; TEMP 36.4; O2SAT 99
[2024-09-16] MEDS: Benztropine Mesylate 1 MG TABLET 2 MG PO (20:37)
[2024-09-16] MEDS: Divalproex Sodium ER 500 MG TAB.ER.24H PO (20:38)
[2024-09-17 08:00] VITALS: BP 130/83; PULSE 76; TEMP 36.4; O2SAT 100
[2024-09-17] MEDS: Ziprasidone 80 MG CAPSULE PO ×2 (09:16→17:34)
--- NOTE | 2024-09-17 11:46 | P.PNPSI_ITS ---
Subjective Subjective Date of Service: 09/17/24 Reason For Visit: schizoafective disorder, bipolar type Subjective Notes: Conditional Voluntary Interim History: Pt slept through the night. She did have a shower last night. Today casually groomed and out of bed but in the room.She has not insight as to why she is here or why others were concern about her presentation. She presents with poverty of thought. She is somewhat ambivalent as to whether she should be here or not. She has not meaningful opinion as to hx of medication trials or therapeutic effects of current medications. Review of Systems Review of Systems Pt has no acute medical complaints at this time. Yes all other systems are reviewed and are negative Mental Status Exam Mental Status Exam Narrative: Appearance: wearing hospital gown, fair hygiene in NAD Behavior: superficially cooperative, but no meaninful engagement Psychomotor: no agitation or retardation noted Speech: clear, decrease amount, minimally spontaneous TP: poverty of thought TC: hoping to go home soon Mood: okay Affect: constricted SI: denies HI: denies VH/AH: although she denies, appears internally preoccupied Delusions: no overt delusional content reported, may not be fully forthcoming Insight/judgment: impaired x 2 Memory/co: alert, not oriented as to reasons for this admission, vague as to what brought her here, which according to records mother concern about pt's decompensation. Diagnostics Vital Signs (24Hr): Vital Signs - 24 hr 09/16/24 20:00 09/17/24 08:00 Temperature 97.5 F 97.6 F Pulse Rate 61 76 Respiratory Rate 14 Blood Pressure 124/57 L 130/83 Pulse Oximetry 99 100 Oxygen Delivery Method Room Air Room Air BMI result Body Mass Index 26.9 Labs 09/09/24 20:52 Medications Medications Current Medications Acetaminophen (Acetaminophen 325 Mg Tablet) 650 mg PO Q6H PRN PRN Reason: Headache/Pain, Scale 1-10 Al Hydroxide/Mg Hydroxide (Magnesium Hydrox/Alum Hydrox 30 Ml Oral.Susp) 30 ml PO Q6H PRN PRN Reason: Heartburn/Nausea Benztropine Mesylate (Benztropine Mesylate 1 Mg Tablet) 2 mg PO BEDTIME [facility] Last Admin: 09/16/24 20:37 Dose: 2 mg Divalproex Sodium (Divalproex Sodium Er 500 Mg Tab.Er.24h) 500 mg PO BEDTIME [facility] Last Admin: 09/16/24 20:38 Dose: 500 mg Hydroxyzine HCl (Hydroxyzine Hcl 25 Mg Tablet) 25 mg PO Q6H PRN PRN Reason: mild anxiety Magnesium Hydroxide (Milk Of Magnesia 30 Ml Oral.Susp) 30 ml PO DAILY PRN PRN Reason: Constipation Trazodone HCl (Trazodone Hcl 50 Mg Tablet) 50 mg PO BEDTIME MRX1 PRN PRN Reason: Insomnia Ziprasidone (Ziprasidone 80 Mg Capsule) 80 mg PO BID@0900,1700 [facility] Last Admin: 09/17/24 09:16 Dose: 80 mg Allergies Allergies Allergy/AdvReac Type Severity Reaction Status Date / Time No Known Allergies Allergy Verified 09/09/24 11:30 Assessment & Plan Assessment & Plan (1) Schizoaffective disorder: Status: Acute Code(s): F25.9 - Schizoaffective disorder, unspecified Plan Pt is a 44-year-old female with a PMH significant for schizophrenia?who is admitted to [facility] psychiat[facility] unit for concerns about acute psychosis. Pt initially brought to the ED on a section 12 as patient's mother has been worried pt was decompensating and responding to internal stimuli. Pt apparently had not been engaging in her ADLs and had increased pacing, was socially withdrawn, and speaking to herself. Medical consult for admission H&P. Mood disorder Plan as per psychiatry Pt otherwise has no known significant chronic medical conditions or acute medical complaints at this time. Will sign off for now. Thank you for allowing us to participate in the care of this pt. Please re-consult if any acute issue or need arises. 09/11: meds reviewed, pt endorses present regimen. denies Sx. continue current mgmt. 09/13: signed CV, then 3-day. continue current mgmt. declines lab draw for tomorrow. 09/14: isolative. difficult to engage. denies any issues. per nursing slept 8 hours. continue tx plan. 09/15: continue current tx plan. encouraged to leave room and attend groups. 09/16 consider gathering collateral information from OP psychiatrist, Dr. Sher as pt may benefit from medication changes. 09/17 continue tx. Reason for continued inpatient stay Substantial Risk for: inability to function Time Spent With Patient Time: Total time managing care of this patient today ____ minutes.
[2024-09-17 20:00] VITALS: BP 143/75; PULSE 76; RESP 18; TEMP 36.8; O2SAT 99
[2024-09-17] MEDS: Benztropine Mesylate 1 MG TABLET 2 MG PO (21:17)
[2024-09-17] MEDS: Divalproex Sodium ER 500 MG TAB.ER.24H PO (21:17)
[2024-09-18 07:57] VITALS: BP 120/73; PULSE 75; RESP 18; TEMP 36.5; O2SAT 97
[2024-09-18] MEDS: Ziprasidone 80 MG CAPSULE PO (08:34)
--- NOTE | 2024-09-18 10:42 | PM.PSYDC ---
DS: Providers Provider Date of Service: 09/18/24 Date of admission: 09/09/24 11:02 Date of discharge: 09/18/24 Primary care physician: None Physician Consults: 09/09/24 11:59 Consult to Hospitalist Routine Comment: Consulting Provider: [facility] Reason For Exam: Direct admission DS: Diagnosis Discharge Diagnosis (1) Schizoaffective disorder: Status: Acute DS: Medications Discharge Medications Home Medications: Previous Rx's ?Medication ?Instructions ?Recorded benztropine 2 mg tablet 2 mg PO BEDTIME 30 days #30 tabs 09/18/24 divalproex 500 mg tablet,extended 500 mg PO BEDTIME 30 days #30 tabs 09/18/24 release 24 hr (Depakote ER) ziprasidone HCl 80 mg capsule 80 mg PO BID@0900,1700 30 days #60 09/18/24 (Geodon) caps Mental Status Exam Mental Status Exam Narrative: adequately dressed and groomed. cooperative. no PMA/PMR. speech nml rate, decr amount, decr prosody, nml latency. thoughts linear and logical. affect blunted. mood good. no SI/SIBI/HI/AVH. DS: Summary Hospital Course Hospital Course: per 09/09 admission note: HPI Subjective Notes: Pagan Warning and Section 12B Narrative: The patient is a 44-year-old female, single, with no children, unemployed on disability, living with his mother with good social support with a past history of schizoaffective disorder bipolar type who was referred to a local crisis due to exacerbation of psychosis. According to the crisis report, her mother called the crisis center since the patient had been decompensating slowly with inability to do her ADLs, neglecting her self-care and responding to internal stimuli. The patient is was assessed by the crisis team and referred to this facility for psychiatric stabilization. As per the crisis team's report, the patient is a very poor historian and most of the information was provided by her mother Almita. The crisis assessment reported that her mother has notice involuntary movements in her neck and legs and the mother is the person who provides the patient with her medications. It is unclear if the patient had been compliant with treatment. The patient follows outpatient services by Dr. Sher at [facility]. On the intake interview, the patient refused to sign a conditional voluntary she stated that she was doing fine but she was very poor historian, refused to elaborate. She was unable to provide any new symptoms. Even though, it was clear that the patient was anxious, responding to internal stimuli. She denied auditory hallucinations but she was internally preoccupied. She denies suicidal or homicidal thoughts. She agreed that we could contact her mother for further information. Past Psychiatric History: The patient has 3 prior admissions into the hospital 1 on 2022 at the [facility]. She follows outpatient services by Dr. Sher at [facility] Medical Evaluation Reviewed: Hospitalist Val Pending [facility] Narrative: Denies medical problems Family History: Denies Social History: The patient is single, never , no biological children. She lives with her mother who is a good support and her primary caregiver. Substance History: Denies Trauma History: Denies Precis: The patient is an adult female with a past history of schizoaffective disorder who has prior admissions into the hospital for psychotic decompensation. The present episode started a few weeks ago with self neglect according to his mother. She was assessed by crisis and transferring to this facility for psychiatric stabilization. The patient follows outpatient services at [facility] with by Dr. Sher. 09/09: 15 minute checks. contact mother and gather collateral information. Continue with antipsychotics as per med reconciliation form. comprehensive metabolic panel, CBC with differential, Depakote level and lipid profile. 09/10: Keep on 15 minute checks. Gather more collateral information the patient is a very poor historian. Continue with the same psychotropics. 09/11: meds reviewed, pt endorses present regimen. denies Sx. continue current mgmt. 09/13: signed CV, then 3-day. continue current mgmt. declines lab draw for tomorrow. 09/14: isolative. difficult to engage. denies any issues. per nursing slept 8 hours. continue tx plan. 09/15: continue current tx plan. encouraged to leave room and attend groups. 09/16: Pt sleeping. She continues to present as internally preoccupied, although will denied ever hearing voices. She has not insight as to why she is here or why others were concern about her presentation. She presents with poverty of thought. She is somewhat ambivalent as to whether she should be here or not. no change in Tx plan. She has not meaningful opinion as to hx of medication trials or therapeutic effects of current medications. 09/17: continue tx. 09/18: 3-day notice up, pt calm, stable, denies Sx. meds reviewed, reconciled, prescribed. pt discharged to the care of her mother as per plan. Time Spent with Patient Time attestation: Total time managing care of this patient today __35__ minutes. Discharge Plan Discharge Anticipated Discharge Date/Time: 09/18/24 11:00 Patient Disposition: Home, Self-Care Discharge Diagnosis: Schizoaffective Disorder Referrals: Dr. Sher ([facility]) [Other] - 09/26/24 2:30 pm (appointment with your provider. ) [facility] [Provider Group] - 1 Week (09-18-24 [facility] was added to patients chart. Please call [phone] to schedule your follow up appt within 7-10 days of discharge.) Discharge Medications: Continued ziprasidone HCl [Geodon] 80 mg Capsule 80 mg PO BID@0900,1700 30 Days Qty: 60 0RF Rx Instructions: give with food (meal/snack) divalproex [Depakote ER] 500 mg Tablet Extended Release 24 Hr 500 mg PO BEDTIME 30 Days Qty: 30 0RF benztropine 2 mg Tablet 2 mg PO BEDTIME 30 Days Qty: 30 0RF Discontinued methylphenidate HCl 5 mg Tablet 10 mg PO DAILY Discharge Orders: Discharge Order (Routine); Ordered 09/18/24 Ordered By: Craig Goodwin Diet: Advance to usual diet Activity on Discharge: As tolerated Stand Alone Forms: Patient Portal Discharge page, Community Support Print Language: Swedish Care Plan Goals: remain safe and stable in the outpatient treatment setting Health Concerns: none Plan of Treatment: take medications as prescribed, attend appointments as scheduled Assessment: not at imminent risk of harm to self or others Discharge Date/Time: 09/18/24 11:13
== END 2024-09-18 11:13 | disposition home or self-care (01) | DRG 885 ==
PROVIDERS: Psychiatry & Neurology Psychiatry; Admitting Provider Psychiatry & Neurology Psychiatry; Visit Provider Psychiatry & Neurology Psychiatry
DX: F25.9 Schizoaffective disorder, unspecified (principal); F17.210 Nicotine dependence, cigarettes, uncomplicated; Z71.6 Tobacco abuse counseling; Z79.899 Other long term (current) drug therapy
CPT/HCPCS: 36415; 80053; 80061; 80164; 84439

== ENCOUNTER → 2024-09-09 11:02 | Outpatient (BNV) | payer MEDICARE, MEDICAID, SELFPAY | PROVIDERS: Admitting Provider Psychiatry & Neurology Psychiatry; Visit Provider Psychiatry & Neurology Psychiatry | DX: F25.0 Schizoaffective disorder, bipolar type (principal) | CPT/HCPCS: 90792; 99231; 99232; 99239 ==

== ENCOUNTER → 2024-09-09 11:02 | Outpatient (BNV) | payer MEDICARE, MEDICAID, SELFPAY | PROVIDERS: Admitting Provider Psychiatry & Neurology Psychiatry; Visit Provider Psychiatry & Neurology Psychiatry | DX: F25.0 Schizoaffective disorder, bipolar type (principal) | CPT/HCPCS: 99231 ==

== ENCOUNTER → 2024-09-09 11:02 | Outpatient (BNV) | payer MEDICARE, MEDICAID, SELFPAY | PROVIDERS: Admitting Provider Psychiatry & Neurology Psychiatry; Visit Provider Student in an Organized Health Care Education/Training Program | DX: Z00.8 Encounter for other general examination (principal) | CPT/HCPCS: 99222 ==